=== PATIENT | female | born 1945 | race Caucasian/White ===

== ENCOUNTER 2016-12-15 12:30 | Emergency (ER) | payer MEDICARE, BC ==
[~2016-12-15] VITALS: Ht 160 cm; Wt 72.7 kg
[~2016-12-15 12:30] MED LIST: ASPI325T6 PO; CYMBALTA 60MG60 MG PO; LEVOXYL0.15 MG PO; MIRAPEX0.5 MG PO; NITROSTAT0.4 MG/TAB SL; PEPCID AC20 MG PO; SYNTHROID0.125 MG/T PO
[2016-12-15 12:35] VITALS: TEMP 99.2
[2016-12-15] MEDS ORDERED: BIOTIN5000 MCG PO (13:48)
[2016-12-15 13:49] LABS: BASO # 0.1 (0.0-0.2); BASO % 0.5 % (0.0-2.0); EOS # 0.2 (0.0-0.7); EOS % 1.5 % (0-4.0); GRAN # 7.3 (1.4-6.5); GRAN % 66.1 % (42.2-75.2); HEMATOCRIT 42.8 % (37.0-47.0); HEMOGLOBIN 14.2 g/dl (12.5-16.0); LYMPH # 2.8 (1.2-3.4); MEAN CELL VOLUME 97 fl (80.0-100.0); MEAN CORPUSCULAR HEMOGLOBIN 32 pg (27.0-31.0); MEAN CORPUSCULAR HGB CONC 33 g/dl (33.0-37.0); MEAN PLATELET VOLUME 12.2 fl (7.4-10.4); MONO # 0.7 (0.1-0.6); MONO % 6.5 % (1.7-9.3); PH 5 (5-8); PLATELET COUNT 200 K/mm3 (130-400); REDCELL DISTRIBUTION WIDTH-CV 12.3 % (11.5-14.5); SQUAMOUS EPITHELIAL 0-2 /hpf; URINE APPEARANCE Clear; URINE BACTERIA None Seen /hpf; URINE BILIRUBIN Negative (NEGATIVE); URINE BLOOD 1+ (NEGATIVE); URINE COLOR Yellow; URINE GLUCOSE Negative (NEGATIVE); URINE KETONE Negative (NEGATIVE); URINE RBC 0-2 /hpf; URINE UROBILINOGEN Negative (NEGATIVE); URINE WBC 0-2 /hpf
[2016-12-15 14:03] LABS: INR 1.1 (0.8-3.0); PROTHROMBIN TIME 11.9 SECONDS (9.7-12.8)
[2016-12-15 14:06] LABS: PARTIAL THROMBOPLASTIN TIME 31.7 SECONDS (26.0-37.0)
[2016-12-15 14:12] LABS: ADJUSTED CALCIUM 9.8 mg/dL (8.4-10.2); ALBUMIN 4.2 gm/dL (3.5-5.0); BILIRUBIN,TOTAL 0.6 mg/dL (0.0-1.0); CREATININE, serum 0.63 mg/dL (0.52-1.25); POTASSIUM 4.6 mmol/L (3.4-5.0); TOTAL PROTEIN 6.7 gm/dL (6.4-8.2)
[2016-12-15] MEDS ORDERED: ZOFRAN ODT4 MG PO (15:52)
[2016-12-15] MEDS ORDERED: NORCO 325 MG-51 TAB PO (15:52)
[2016-12-15] MEDS ORDERED: FLAGYL500 MG PO (15:52)
[2016-12-15] MEDS ORDERED: CIPRO 500MG TA500 MG PO (15:52)
[2016-12-15 16:08] VITALS: BP 138/80; PULSE 71
== END 2016-12-15 16:08 | disposition home or self-care (01) ==
LOC: COL.ER 12:30
PROVIDERS: Emergency Medicine
DX: K92.1 Melena (principal); R10.12 Left upper quadrant pain; E03.9 Hypothyroidism, unspecified; K21.9 Gastro-esophageal reflux disease without esophagitis; G25.81 Restless legs syndrome; F17.210 Nicotine dependence, cigarettes, uncomplicated; Z90.710 Acquired absence of both cervix and uterus
CPT/HCPCS: Q9967

== ENCOUNTER 2016-12-18 13:31 | Day surgery (SDC) | payer MEDICARE, BC ==
[~2016-12-18] VITALS: Ht 160 cm; Wt 73.6 kg
[~2016-12-18 13:31] MED LIST changes: +BIOTIN5000 MCG PO; +CIPRO 500MG TA500 MG PO; +FLAGYL500 MG PO; +NORCO 325 MG-51 TAB PO; +ZOFRAN ODT4 MG PO
[2016-12-18 14:06] VITALS: BP 126/82; PULSE 66; TEMP 98.2
[2016-12-18] MEDS ORDERED: SYNTHROID0.137 MG PO (14:18)
[2016-12-18] MEDS ORDERED: ZANTAC 300300 MG PO (14:19)
== END 2016-12-18 15:17 | disposition home or self-care (01) ==
LOC: SDCO 13:31
DX: K92.1 Melena (principal); Z53.9 Procedure and treatment not carried out, unspecified reason; Z53.8 Procedure and treatment not carried out for other reasons
CPT/HCPCS: OP; J7030

== ENCOUNTER 2020-07-07 13:00 | Outpatient (RCR) | payer MEDICARE, BC, OTHER ==
[~2020-07-07 13:00] MED LIST changes: +SYNTHROID0.137 MG PO; +ZANTAC 300300 MG PO
== END 2020-08-05 09:11 | disposition home or self-care (01) ==
LOC: WSC 13:00
DX: M48.062 Spinal stenosis, lumbar region with neurogenic claudication (principal); M54.16 Radiculopathy, lumbar region

== ENCOUNTER → 2021-04-06 | Outpatient (CLI) | payer MEDICARE, BC ==
[~2021-04-06] MED LIST changes: +BENICAR 20MG TA20 MG PO; +GLUCOPHAGE500 MG/TAB PO; +HYDRODIURIL50 MG PO; +INDERAL 20MG20 MG PO; +MOTRIN 400400 MG/TAB PO; +ULTRAM 50MG TAB50 MG PO
== END ==
LOC: COL.RAD 04-05 14:00
DX: Z12.2 Encounter for screening for malignant neoplasm of respiratory organs (principal); F17.210 Nicotine dependence, cigarettes, uncomplicated; Z98.890 Other specified postprocedural states

== ENCOUNTER 2021-04-19 18:11 | Emergency (ER) | payer MEDICARE, BC ==
[~2021-04-19] VITALS: Ht 157.5 cm; Wt 75.0 kg
[~2021-04-19 18:11] MED LIST changes: -BENICAR 20MG TA20 MG PO; -GLUCOPHAGE500 MG/TAB PO; -HYDRODIURIL50 MG PO; -INDERAL 20MG20 MG PO; -MOTRIN 400400 MG/TAB PO; -ULTRAM 50MG TAB50 MG PO
[2021-04-19] MEDS ORDERED: CYMBALTA 60MG60 MG PO (19:27)
[2021-04-19] MEDS ORDERED: HYDRODIURIL50 MG PO (19:29)
[2021-04-19] MEDS ORDERED: GLUCOPHAGE500 MG/TAB PO (19:29)
[2021-04-19] MEDS ORDERED: INDERAL 20MG20 MG PO (19:31)
[2021-04-19] MEDS ORDERED: BENICAR 20MG TA20 MG PO (19:31)
[2021-04-19] MEDS ORDERED: ULTRAM 50MG TAB50 MG PO (19:32)
[2021-04-19] MEDS ORDERED: MOTRIN 400400 MG/TAB PO (19:32)
[2021-04-19] MEDS ORDERED: NORCO 325 MG-51 TAB PO (21:20)
[2021-04-19 21:22] VITALS: BP 140/75; PULSE 65; TEMP 98.5
== END 2021-04-19 21:38 | disposition home or self-care (01) ==
LOC: COL.ER 18:11
DX: S42.201A Unspecified fracture of upper end of right humerus, initial encounter for closed fracture (principal); E03.9 Hypothyroidism, unspecified; Z98.890 Other specified postprocedural states; Z88.5 Allergy status to narcotic agent; Z79.890 Hormone replacement therapy; W01.198A Fall on same level from slipping, tripping and stumbling with subsequent striking against other object, initial encounter